=== PATIENT | male | born 1965 | race Caucasian/White ===

== ENCOUNTER 2019-08-04 06:40 | Day surgery (SDC) | payer MEDICAID ==
[~2019-08-04] VITALS: Ht 182.9 cm; Wt 88.6 kg
[2019-08-04 06:46] VITALS: BP 111/69
[2019-08-04] MEDS ORDERED: BUPR1FIL17 SL (06:54)
[2019-08-04] MEDS ORDERED: DEXL60CA3 PO (06:54)
[2019-08-04] MEDS ORDERED: LIDOcaine Viscous 15ml cup ONE (07:11)
[2019-08-04] MEDS ORDERED: fentaNYL/PF 50MCG/1 ML 2ML syringe ONE ×3 (07:11→08:33)
[2019-08-04] MEDS ORDERED: MIDAZolam 5mg/5ml vial ONE (07:11)
[2019-08-04] MEDS ORDERED: diphenhydrAMINE 50 mg/ml inj ONE (08:31)
[2019-08-04 09:10] VITALS: BP 112/73
[2019-08-04 09:20] VITALS: BP 100/66
[2019-08-04 09:30] VITALS: BP 102/62
[2019-08-04 09:40] VITALS: BP 118/72
[2019-08-04 09:50] VITALS: BP 128/74
== END 2019-08-04 10:00 | disposition home or self-care (01) ==
LOC: GI LAB 06:40
PROVIDERS: ATTEND Internal Medicine Gastroenterology
DX: Z12.11 Encounter for screening for malignant neoplasm of colon (principal); R13.10 Dysphagia, unspecified; K22.2 Esophageal obstruction; K20.8 Other esophagitis; Z87.19 Personal history of other diseases of the digestive system
CPT/HCPCS: 43239; 43248; 45378; 99152; 99153; J1200; J2250; J3010; J7040; A4620

== ENCOUNTER 2023-02-15 17:18 | Emergency (ER) | payer MEDICAID ==
[~2023-02-15] VITALS: Ht 185.4 cm; Wt 107.0 kg
[~2023-02-15 17:18] MED LIST: BUPR1FIL17 SL; DEXL60CA3 PO
[2023-02-15 17:24] VITALS: TEMP 98
[2023-02-15 18:03] VITALS: BP 128/82; PULSE 76; RESP 16; O2SAT 98
[2023-02-15] MEDS ORDERED: NAPR-56 PO (20:22)
== END 2023-02-15 20:32 | disposition home or self-care (01) ==
LOC: ER 17:19
DX: S70.11XA Contusion of right thigh, initial encounter (principal); G89.29 Other chronic pain; M54.9 Dorsalgia, unspecified; X58.XXXA Exposure to other specified factors, initial encounter; Y93.89 Activity, other specified; Y92.89 Other specified places as the place of occurrence of the external cause; Y99.8 Other external cause status
CPT/HCPCS: 99282

== ENCOUNTER 2023-02-19 19:28 | Emergency (ER) | payer MEDICAID ==
[~2023-02-19] VITALS: Ht 182.9 cm; Wt 99.1 kg
[~2023-02-19 19:28] MED LIST changes: +NAPR-56 PO
[2023-02-19 20:02] VITALS: TEMP 98
[2023-02-19] MEDS ORDERED: enoxaparin 100mg/ml syringe SUBCUT ONE (23:00)
[2023-02-19] MEDS ORDERED: normal saline 1000ml 1,000 ML IV ONE (23:00)
[2023-02-19 23:40] LABS: BASOPHILS % (AUTO) 0.6 % (0-1); EOSINOPHILS # (AUTO) 0.3 X10'3 (0-0.9); EOSINOPHILS % (AUTO) 4.8 % (0-6); HEMATOCRIT 44.6 % (42.0-52.0); HEMOGLOBIN 15.2 g/dl (14.0-17.9); LYMPHOCYTES # (AUTO) 1.7 X10'3 (1.1-4.8); LYMPHOCYTES % (AUTO) 31.1 % (21-51); MEAN CORPUSCULAR HEMOGLOBIN 30.8 PG (27.0-31.0); MEAN CORPUSCULAR HGB CONC 34.1 g/dL (33.0-36.5); MEAN CORPUSCULAR VOLUME 90.2 FL (78-98); MEAN PLATELET VOLUME 6.4 FL (7.4-10.4); MONOCYTES # (AUTO) 0.5 X10'3 (0-0.9); MONOCYTES % (AUTO) 9.7 % (2-12); NEUTROPHILS # (AUTO) 2.9 X10'3 (1.8-7.7); NEUTROPHILS % (AUTO) 53.8 % (42-75); PLATELET COUNT 312 X10'3 (140-440); RED BLOOD COUNT 4.94 X10'6 (4.70-6.10); RED CELL DISTRIBUTION WIDTH 13.6 % (11.5-14.5); WHITE BLOOD COUNT 5.3 X10'3 (4.5-11.0)
[2023-02-19 23:51] LABS: PROTHROMBIN TIME 10.9 SECONDS (9.0-12.0)
[2023-02-19 23:55] LABS: ALANINE AMINOTRANSFERASE 26 U/L (12-78); ALBUMIN 3.6 G/DL (3.4-5.0); ALBUMIN/GLOBULIN RATIO 1.3 (1.1-1.5); ALKALINE PHOSPHATASE 75 IU/L (46-116); ANION GAP 8 (8-16); ASPARTATE AMINO TRANSFERASE 23 U/L (10-37); BILIRUBIN,TOTAL 0.9 MG/DL (0.1-1.0); BLOOD UREA NITROGEN 21 MG/DL (7-18); BUN/CREATININE RATIO 21.2 (10.0-20.0); CALCIUM 8.5 MG/DL (8.5-10.1); CHLORIDE 103 MMOL/L (99-107); CREATININE 0.99 MG/DL (0.60-1.10); GLUCOSE 123 MG/DL (70-104); POTASSIUM 3.6 MMOL/L (3.5-5.1); SODIUM 139 MMOL/L (135-145); TOTAL CARBON DIOXIDE 28.5 MMOL/L (24-32); TOTAL PROTEIN 6.4 G/DL (6.4-8.2); eCRCL 93 ML/MIN; eGFR 78 ML/MIN
[2023-02-20 00:03] LABS: PRO BRAIN NATRIURETIC PEPTIDE 48 PG/ML (0-125)
[2023-02-20] MEDS ORDERED: iohexol 350MG/ML 100ml bottle IV ONE (00:22)
[2023-02-20 01:57] VITALS: BP 122/84; PULSE 83; RESP 18; O2SAT 95
== END 2023-02-20 02:01 | disposition home or self-care (01) ==
LOC: ER 19:29
DX: S30.21XA Contusion of penis, initial encounter (principal); G89.29 Other chronic pain; M54.9 Dorsalgia, unspecified; X58.XXXA Exposure to other specified factors, initial encounter; F12.10 Cannabis abuse, uncomplicated; Y93.89 Activity, other specified; Y92.89 Other specified places as the place of occurrence of the external cause; Y99.8 Other external cause status
CPT/HCPCS: 36415; 71045; 71275; 80053; 83880; 84484; 85025; 85610; 93005; 93971; 96360; 99285; J3490; J7030; Q9967